=== PATIENT | male | born 1955 | race Caucasian/White ===

== ENCOUNTER 2016-11-29 07:15 | Day surgery (SDC) | payer OTHER ==
[~2016-11-29] VITALS: Ht 188 cm; Wt 102.6 kg
[~2016-11-29 07:15] MED LIST: 0.9% Sodium Chloride 1,000 ML IV SCH; DILT30TA PO; IMIP50TA4 PO; LISI10TA PO; NITR0.4T6 SL; PANT40TA3 PO; RIVA20TA PO; Sodium Chloride LOK Flush 10 mL Syringe IV PRN; fentaNYL-PF 50 mCg/mL 2 mL Inj IVPUSH PRN
[2016-11-29 07:46] VITALS: BP 142/89; PULSE 70; RESP 14; O2SAT 98
[2016-11-29 08:35] VITALS: BP 118/84; PULSE 63; RESP 16; O2SAT 95
[2016-11-29 08:45] VITALS: BP 115/69; PULSE 60; RESP 16; O2SAT 93
[2016-11-29 08:55] VITALS: BP 112/72; PULSE 56; RESP 16; O2SAT 93
[2016-11-29 09:05] VITALS: BP 118/76; PULSE 67; RESP 16; O2SAT 93
--- NOTE | 2016-11-29 10:03 | ENDO ---
[address] [address] ENDOSCOPY PROCEDURE PATIENT: FER ARANGO : 1955 MR#: [id number] ADMIT: 11/29/2016 JOB ID: [id number] DATE: 11/29/2016 PREOPERATIVE DIAGNOSIS(ES): 1. Atypical chest pain. 2. Personal history of colon cancer and colon polyps. POSTOPERATIVE DIAGNOSIS(ES): 1. Normal upper endoscopy. 2. Ascending colon polyp. 3. Hepatic flexure polyp. OPERATION: 1. Upper endoscopy. 2. Colonoscopy with snare polypectomy and cold forceps polypectomy. SURGEON: Jeronimo Fields M.D. INDICATIONS: A 61-year-old man who has atypical chest pain that has defied explanation and after discussing options with the patient, it was elected to proceed with an upper endoscopy followed by an esophageal manometry. He also has a personal history of colon cancer having had a sigmoid colectomy more than 10 years ago without evidence of recurrence but he produces numerous polyps and is here for his annual colonoscopy as well. FINDINGS: His esophagus was normal. The GE junction was at 40 cm from the incisors. There is no evidence of esophagitis. The transition from esophageal to gastric mucosa was very sharp. There was no evidence of Martinez's. There is no evidence of stricture. The retroflexed views of the cardia revealed a Hill I flap valve. The fundus, body and antrum of the stomach were normal. The pylorus and duodenal bulb were normal. The patient started retching and I did not see further into the duodenum. He had a good prep. The scope was advanced to the cecum with clear visualization of cecal landmarks. The scope was withdrawn over 11 minutes. Two small polyps were identified, one in the ascending colon removed with cold forceps and then hepatic flexure polyp removed with a cold snare. Both were retrieved and submitted to Pathology. DESCRIPTION OF PROCEDURE: The procedure and sedation plan was discussed with the patient and nursing staff, and a procedural time-out was held. He received a total of 8 mg of Versed and 150 mcg of fentanyl for both procedures. The Olympus GIF H 180 J video endoscope was passed transorally, advanced into the duodenal bulb, but then because of the patient retching was withdrawn with results as stated above. There were no biopsies taken. She was repositioned. A digital rectal examination was performed. The Olympus PCF H 180 AL videocolonoscope was passed transanally, advanced to the cecum, withdrawn with a cold forceps polypectomy at the ascending colon and a cold snare polypectomy at the hepatic flexure. The anastomosis was clearly visualized, was widely patent. No evidence of recurrence. Retroflexed views of the rectum were normal. IMPRESSION: 1. Atypical chest pain. Etiology of his pain is not identified by his upper endoscopy and esophageal manometry has been ordered. 2. Ascending colon polyp. 3. Hepatic flexure polyp. 4. No evidence of recurrence of his sigmoid colon cancer. PLAN: Esophageal manometry and return to my office for followup.
--- NOTE | 2016-11-30 11:07 | PATH ---
SURGICAL PATHOLOGY Attending Physician:Ernesto Rao CASE STATUS: Signed Out PATIENT NAME: FER ARANGO PID: [id number] : 1955 DATE COLLECTED:11/29/2016 17:39 SPECIMEN: 1: Colon, Biopsy 2: Colon, Biopsy CLINICAL HISTORY: 1). ASCENDING COLON POLYP 2). HEPATIC FLEXURE POLYP FINAL DIAGNOSIS: 1. Ascending Colon Polyp: Tubular adenoma. 2. Hepatic Flexure Polyp: Tubular adenoma involving single biopsy fragment. ICD10 D12.2 GROSS DESCRIPTION: The specimen is received in two formalin filled containers labeled with the patient's name. 1). The specimen is sublabeled "ascending colon polyp" and consists of a 0.3 x 0.3 x 0.3 CM portion of tissue which is entirely submitted in cassette 1A. 2). The specimen is sublabeled "hepatic flexure polyp" and consists of 3 portions of tissue which aggregate to 0.5 x 0.3 x 0.2 CM. The specimen is entirely submitted in cassette 2A. 11/29/2016 [facility] ICD-9 CODES: CPT CODES: 1: 93879 2: 33441 Electronically Signed Out Rah Alcocer MD [facility] Pathology [facility] [address], [place] [address] Technical component performed at [facility], [address] [place] [address] Ave[address], [place], [address]
== END 2016-11-29 23:59 | disposition home or self-care (01) ==
LOC: END 07:15
PROVIDERS: ATTEND Surgery
DX: Z12.11 Encounter for screening for malignant neoplasm of colon (principal); Z86.010 Personal history of colon polyps; Z85.038 Personal history of other malignant neoplasm of large intestine; D12.2 Benign neoplasm of ascending colon; D12.3 Benign neoplasm of transverse colon; R07.89 Other chest pain; N41.9 Inflammatory disease of prostate, unspecified; Z79.01 Long term (current) use of anticoagulants; Z86.711 Personal history of pulmonary embolism; Z85.51 Personal history of malignant neoplasm of bladder; Z92.21 Personal history of antineoplastic chemotherapy; N40.1 Benign prostatic hyperplasia with lower urinary tract symptoms; N13.8 Other obstructive and reflux uropathy; R31.0 Gross hematuria